=== PATIENT | male | born 1955 | race Caucasian/White ===

== ENCOUNTER 2022-06-15 17:41 | Emergency (ER) | payer BC, SELFPAY ==
[2022-06-15 17:45] VITALS: BP 177/97; PULSE 59; RESP 16; TEMP 36.8; O2SAT 99; BMI 33.7
--- NOTE | 2022-06-15 17:54 | ED.RN ---
Addendum entered by Sheila Neely 06/15/22 17:56: PATIENT IS EMPLOYED BY [employer]. Original Note: ATTEMPTED TO CALL DYNAMICIST JAYSON ARREDONDO AT [phone]. HAD TO LEAVE MESSAGE.
--- NOTE | 2022-06-15 18:01 | ED.RN ---
SPOKE WITH EAR SPECIALIST JAYSON ARREDONDO- DRUG SCREEN IS REQUIRED FOR [employer].
--- NOTE | 2022-06-15 18:39 | CT_ITS ---
INDICATION: pain EXAMINATION: CT CERVICAL SPINE - CT Spine Cervical W/O Contrast Injection TECHNIQUE: Helically acquired images were obtained of the cervical spine. 2D reformatted images were reviewed. A radiation dose optimization technique was used for this scan. IV Contrast dosage and agent: None. COMPARISON: None. FINDINGS: VERTEBRAE: No fracture or traumatic subluxation. No discrete lytic or blastic abnormality. Normal alignment. Normal craniocervical junction and cervicothoracic junction. DISCS and SPINAL CANAL: Mild multilevel degenerative disc disease and spondylosis. No critical stenosis. NECK SOFT TISSUES: No prevertebral soft tissue swelling. There is no cervical adenopathy. LUNG APICES: Clear. CT/Spine Cervical without Contras IMPRESSION: No evidence of acute cervical spinal fracture or spondylolisthesis. Mild multilevel degenerative disc disease and spondylosis. Electronically Signed: Milind Hdz MD at 19:50 EST ,
--- NOTE | 2022-06-15 18:39 | CT_ITS ---
INDICATION: pain EXAMINATION: CT Spine Lumbar W/O Contrast Injection TECHNIQUE: Helically acquired images were obtained of the lumbar spine. 2D reformats were reviewed. A radiation dose optimization technique was used for this scan. IV Contrast dosage and agent: None. COMPARISON: None. FINDINGS: VERTEBRAE: No fracture or traumatic subluxation. No discrete lytic or blastic abnormality observed. Normal alignment. DISCS and SPINAL CANAL: Mild multilevel degenerative disc disease and spondylosis.No critical stenosis. VISUALIZED ABDOMEN: Visualized abdominal aorta is not dilated. There is no retroperitoneal adenopathy. CT/Spine Lumbar without Contrast IMPRESSION: No evidence of acute lumbar spinal fracture or spondylolisthesis. Mild multilevel degenerative disc disease and spondylosis. Electronically Signed: Milind Hdz MD at 19:50 EST ,
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
--- NOTE | 2022-06-15 19:00 | RAD_ITS ---
STUDY: X-RAY - PELVIS AND LEFT HIP REASON FOR EXAM: Male, 66 years old. Pain TECHNIQUE: 3 views of the pelvis and hip. COMPARISON: None. FINDINGS: There is a normal bowel gas pattern. Normal visualized soft tissue structures. Normal bilateral iliac wings, sacroiliac joints and visualized sacrum. Normal bilateral superior and inferior pubic rami. Normal pubic symphysis. Normal bilateral ischial tuberosities. There are osteoarthritic changes of the femoral head with marginal osteophyte formation. There is osteoarthritic spur formation of the acetabular rim. There is mild articular joint space narrowing of the hip. There is no acute fracture. RAD/HIP, UNI W/ Pelvis 2-3 Views IMPRESSION: Degenerative change. No fracture seen. Electronically Signed: Parvez Schmidt MD at 19:19 EST ,
[2022-06-15 19:41] VITALS: RESP 18
== END 2022-06-15 20:59 | disposition home or self-care (01) ==
PROVIDERS: Emergency Provider Emergency Medicine; Visit Provider Emergency Medicine
DX: S39.012A Strain of muscle, fascia and tendon of lower back, initial encounter (principal); M50.30 Other cervical disc degeneration, unspecified cervical region; I10 Essential (primary) hypertension; M51.36 Other intervertebral disc degeneration, lumbar region; Y92.410 Unspecified street and highway as the place of occurrence of the external cause; V49.40XA Driver injured in collision with unspecified motor vehicles in traffic accident, initial encounter
CPT/HCPCS: 70450; 72125; 72131; 73502; 99284